=== PATIENT | female | born 1960 | race Caucasian/White ===

== ENCOUNTER 2017-03-09 10:42 | Emergency (ER) | payer MEDICAID ==
[~2017-03-09] VITALS: Ht 160 cm; Wt 68.0 kg
[2017-03-09 10:58] VITALS: BP 195/123
== END 2017-03-09 11:41 | disposition home or self-care (01) ==
LOC: ER 10:44
DX: M75.92 Shoulder lesion, unspecified, left shoulder (principal)
CPT/HCPCS: 73030; 93005

== ENCOUNTER 2020-07-01 06:59 | Emergency (ER) | payer MEDICAID ==
[~2020-07-01] VITALS: Ht 157.5 cm; Wt 72.1 kg
[2020-07-01 07:14] VITALS: BP 154/86
[2020-07-01] MEDS ORDERED: cefTRIAXone SOD 1,000 MG VL IM ONE (08:15)
== END 2020-07-01 08:44 | disposition home or self-care (01) ==
LOC: ER 06:59
DX: K04.7 Periapical abscess without sinus (principal); I10 Essential (primary) hypertension
CPT/HCPCS: 96372; 99283; J0696

== ENCOUNTER 2020-07-02 08:18 | Inpatient (IN) | payer MEDICAID ==
[~2020-07-02] VITALS: Ht 157.5 cm; Wt 69.1 kg
[2020-07-02] MEDS ORDERED: KETOROLAC TROMETH 30 MG/ML 1ML VIAL IV ONE (10:00)
[2020-07-02] MEDS ORDERED: cefTRIAXone 1GM/50ML D5W 50 ML IV ONE (10:00)
[2020-07-02] MEDS ORDERED: CLINDAMYCIN 600MG IV 50 ML IV ONE (10:00)
[2020-07-02 10:35] LABS: Basophils # (auto) 0 10 ^3/uL (0-0.2); Basophils % (auto) 0.1 % (0.0-2.0); Eosinophils # (auto) 0 10 ^3/uL (0-0.8); Eosinophils % (auto) 0.1 % (0.0-7.0); Hematocrit 37.8 % (36.0-46.0); Hemoglobin 12.6 g/dL (12.2-16.2); Lymphocytes # (auto) 0.7 10 ^3/uL (0.4-5.4); Lymphocytes % (auto) 5.9 % (10.0-50.0); Mean Corpuscular Hemoglobin 28.4 pg (28.0-32.0); Mean Corpuscular Hgb Conc. 33.5 g/dL (32.0-36.0); Mean Corpuscular Volume 84.8 fL (80.0-100.0); Monocytes % (auto) 8.3 % (0.0-12.0); Neutrophils # (auto) 10.3 10 ^3/uL (1.6-8.6); Neutrophils % (auto) 85.6 % (37.0-80.0); Nucleated Red Blood Cells % 0.2 %; Platelet Count (auto) 234 10^3/uL (140-450); Red Blood Cells 4.46 10^6/uL (4.0-5.20); Red Cell Distribution Width 13.4 % (11.8-14.3)
[2020-07-02] MEDS ORDERED: ONDANSETRON HCL 4 MG/2 ML VIAL IV PRN (12:00)
[2020-07-02 12:01] LABS: Chloride 104 mmol/L (98-107); Potassium 3.1 mmol/L (3.5-5.1); Sodium 138 mmol/L (136-145)
[2020-07-02 12:27] LABS: Anion Gap 12 (5-15); BUN/Creatinine Ratio 14.5; Blood Urea Nitrogen 12 mg/dL (7-18); Calcium 9.9 mg/dL (8.5-10.1); Carbon Dioxide 22 mmol/L (21-32); GFR African American 91 mL/min; GFR Non-African American 75 mL/min; Glucose 110 mg/dL (74-106)
--- NOTE | 2020-07-02 12:39 | NUR ---
MEDSURG admit from ER ANNIEJUAN DIEGO admitted to Telemetry unit after SBAR received. Patient oriented to LALO chan RN, unit, room 298A and unit policies regarding patient care and visiting hours. Patient weighed by bedscale and encouraged to call if they need something. All questions and concerns addressed, patient verbalized understanding.
[2020-07-02 13:00] VITALS: BP 137/65
[2020-07-02] MEDS: CLINDAMYCIN 600MG IV 50 ML IV SCH ×2 (13:43→20:31)
[2020-07-02] MEDS ORDERED: PIPERACILLIN-TAZOB 3.375GM 100 ML IV SCH ×2 (14:00)
--- NOTE | 2020-07-02 14:10 | NUR ---
PAGEPedro GANT Regarding patient potassium 3.1, awaiting call back.
--- NOTE | 2020-07-02 14:25 | NUR ---
STALIN RETURNED PAGE new orders for potassium 40 meq PO once, order read back and verified.
[2020-07-02] MEDS: MORPHINE SULF INJ 2 MG/ML SYRINGE 1ML IV PRN (14:42)
[2020-07-02] MEDS: PIPERACILLIN-TAZOB 3.375GM 100 ML IV SCH ×2 (14:59→20:31)
[2020-07-02] MEDS ORDERED: POTASSIUM CHL 20 Meq TABLET PO ONE (15:00)
[2020-07-02 17:33] VITALS: BP 132/78
[2020-07-02] MEDS: HYDROcodone-ACET 5/325MG TAB PO PRN (20:32)
[2020-07-02 22:00] VITALS: BP 129/72
[2020-07-03] MEDS: MORPHINE SULF INJ 2 MG/ML SYRINGE 1ML IV PRN ×4 (00:41→20:55)
[2020-07-03 05:00] VITALS: BP 139/73
[2020-07-03] MEDS: PIPERACILLIN-TAZOB 3.375GM 100 ML IV SCH ×3 (06:01→23:00)
[2020-07-03] MEDS: CLINDAMYCIN 600MG IV 50 ML IV SCH ×3 (06:02→21:33)
[2020-07-03 06:05] LABS: Basophils # (auto) 0 10 ^3/uL (0-0.2); Eosinophils # (auto) 0 10 ^3/uL (0-0.8); Eosinophils % (auto) 0.1 % (0.0-7.0); Hematocrit 34.1 % (36.0-46.0); Hemoglobin 11.7 g/dL (12.2-16.2); Lymphocytes # (auto) 0.8 10 ^3/uL (0.4-5.4); Lymphocytes % (auto) 6.3 % (10.0-50.0); Mean Corpuscular Hemoglobin 28.9 pg (28.0-32.0); Mean Corpuscular Hgb Conc. 34.3 g/dL (32.0-36.0); Mean Corpuscular Volume 84.1 fL (80.0-100.0); Monocytes # (auto) 0.9 10 ^3/uL (0-1.3); Neutrophils # (auto) 10.9 10 ^3/uL (1.6-8.6); Neutrophils % (auto) 86.6 % (37.0-80.0); Nucleated Red Blood Cells % 0.1 %; Platelet Count (auto) 214 10^3/uL (140-450); Red Blood Cells 4.05 10^6/uL (4.0-5.20); Red Cell Distribution Width 13.3 % (11.8-14.3); White Blood Cell 12.6 10^3/uL (4.4-10.8)
[2020-07-03 06:27] LABS: Calcium 8.7 mg/dL (8.5-10.1); Potassium 3.1 mmol/L (3.5-5.1)
[2020-07-03 06:29] LABS: Magnesium 2.3 mg/dL (1.6-2.6)
--- NOTE | 2020-07-03 06:47 | NUR ---
PT RESTING WITH EYES CLOSED; RESP EVEN AND UNLABORED;ABLE TO AMBULATE WITH GOOD STEADY GAIT WHEN AWAKE. PT IS PAIN FREE AT THIS TIME WITH CALL LIGHT IN REACH.
[2020-07-03 08:51] VITALS: BP 129/75
[2020-07-03 12:53] VITALS: BP 139/59
[2020-07-03 16:49] VITALS: BP 125/63
--- NOTE | 2020-07-03 19:50 | NUR ---
Opening Shift Note Assumed care of patient, awake and alert. No S/S of distress/SOB or pain. Instructed on POC and to call for assist PRN. Bed in lowest locked position, call light within reach, side rails up x2. Will continue to monitor for changes Q1hr and PRN.
[2020-07-03] MEDS ORDERED: ZOLPIDEM TARTRATE 5 MG TAB PO ONE (20:15)
[2020-07-03 22:00] VITALS: BP 132/68
[2020-07-04] MEDS: ACETAMINOPHEN 325 MG TAB PO PRN ×3 (00:35→23:04)
[2020-07-04 05:00] VITALS: BP 125/72
[2020-07-04] MEDS: CLINDAMYCIN 600MG IV 50 ML IV SCH (05:39)
[2020-07-04] MEDS: PIPERACILLIN-TAZOB 3.375GM 100 ML IV SCH (06:41)
--- NOTE | 2020-07-04 07:50 | NUR ---
Opening Shift Note Assumed care of patient, awake and alert. No S/S of distress/SOB or pain. Instructed on POC and to call for assist PRN, will continue to monitor for changes Q1hr and PRN. Fall precautions in place per safety protocol.
[2020-07-04] MEDS: MORPHINE SULF INJ 2 MG/ML SYRINGE 1ML IV PRN ×3 (08:42→20:19)
--- NOTE | 2020-07-04 08:47 | NUR ---
PAIN Patient requesting pain medications forpain rating 8/10 in jaw. medicated with morphine after vitals assessed. Will cont to monitor patient.
[2020-07-04 09:27] VITALS: BP 122/74
[2020-07-04 10:14] LABS: Hematocrit 35.8 % (36.0-46.0); Hemoglobin 11.9 g/dL (12.2-16.2); Mean Corpuscular Hgb Conc. 33.4 g/dL (32.0-36.0); Platelet Count (auto) 267 10^3/uL (140-450); Red Blood Cells 4.26 10^6/uL (4.0-5.20); Red Cell Distribution Width 13.4 % (11.8-14.3); White Blood Cell 12.7 10^3/uL (4.4-10.8)
[2020-07-04] MEDS ORDERED: IOHEXOL 300 MG/ML 100ML BOTTLE IJ ONE (10:14)
[2020-07-04 10:17] LABS: Band Neutrophils % (manual) 0; Basophils % (manual) 0 (0.0-2.0); Blast Cells 0; Eosinophils % (manual) 0 (0-7); Metamyelocytes % 0; Myelocytes % 0; Promyelocytes % 0; Reactive Lymphocytes 0
[2020-07-04 10:30] LABS: BUN/Creatinine Ratio 18.8; Calcium 8.7 mg/dL (8.5-10.1)
--- NOTE | 2020-07-04 10:30 | NUR ---
Critical Received critical lab for potassium. New orders received by MD Arevalo. Orders read back and verified, Will carry out new orders and cont to care for patient.
[2020-07-04 10:32] LABS: Potassium 2.8 mmol/L (3.5-5.1)
[2020-07-04] MEDS ORDERED: POTASSIUM CHL 20 Meq TABLET PO ONE (10:45)
[2020-07-04 10:51] LABS: Lymphocytes % (manual) 6 (10.0-50.0); Monocytes % (manual) 1 (0-12)
[2020-07-04] MEDS: POTASSIUM CHL 20MEQ/100ML 100 ML IV SCH ×2 (11:08→13:40)
--- NOTE | 2020-07-04 11:30 | NUR ---
Physician Per MD Arevalo, patient is to be transferred to higher level of care. Will consult case management for transfer.
[2020-07-04 14:26] VITALS: BP 137/98
--- NOTE | 2020-07-04 15:53 | NUR ---
Infectious Disease MD Polanco at bedside, aware of patient status. New orders received, will carry out new orders and cont to monitor patient.
[2020-07-04] MEDS ORDERED: VANCOMYCIN PER PHARMACY 0 MG IV SCH (16:00)
[2020-07-04 16:51] VITALS: BP 136/82
[2020-07-04] MEDS: AMPICILLIN & SULBACTAM SODIUM 3 GM in SODIUM CHL 0.9% 100 ML IV SCH ×2 (16:51→22:47)
--- NOTE | 2020-07-04 19:47 | NUR ---
1743 07/04/20 - Faxed to [facility] transfer center at [phone] and [facility] transfer center at [phone], face sheet, Order to transfer to higher level of care for oromaxillofacial surgery, H/P, labs, meds, ID consult. Contacted [facility] at [phone] placed patient on "will call". Contacted Enma WOLFF for [facility] who provided the following Authorizations for facility [id number] and transportation [id number]. Pending review and bed availability.
[2020-07-04] MEDS: VANCOMYCIN 1GM/250ML 250 ML IV SCH (20:16)
[2020-07-04 22:00] VITALS: BP 143/80
[2020-07-05] MEDS: TEMAZEPAM 15 MG CAP PO PRN ×2 (00:55→22:59)
[2020-07-05] MEDS: MORPHINE SULFATE 4 MG/ML SYR/VIAL IV PRN ×5 (01:05→22:20)
[2020-07-05] MEDS: AMPICILLIN & SULBACTAM SODIUM 3 GM in SODIUM CHL 0.9% 100 ML IV SCH ×5 (04:12→22:19)
[2020-07-05 05:00] VITALS: BP 137/73
[2020-07-05 07:14] LABS: Hematocrit 34.9 % (36.0-46.0); Hemoglobin 11.8 g/dL (12.2-16.2); Mean Corpuscular Hemoglobin 28.8 pg (28.0-32.0); Mean Corpuscular Hgb Conc. 33.7 g/dL (32.0-36.0); Mean Corpuscular Volume 85.5 fL (80.0-100.0); Platelet Count (auto) 265 10^3/uL (140-450); Red Blood Cells 4.09 10^6/uL (4.0-5.20); Red Cell Distribution Width 13.3 % (11.8-14.3); White Blood Cell 10.8 10^3/uL (4.4-10.8)
[2020-07-05 07:39] LABS: Band Neutrophils % (manual) 0; Basophils % (manual) 0 (0.0-2.0); Blast Cells 0; Eosinophils % (manual) 0 (0-7); Metamyelocytes % 0; Promyelocytes % 0; Reactive Lymphocytes 0
[2020-07-05 08:00] VITALS: BP 136/80
[2020-07-05 08:22] LABS: Lymphocytes % (manual) 13 (10.0-50.0); Monocytes % (manual) 7 (0-12); Myelocytes % 2
[2020-07-05] MEDS: VANCOMYCIN 1GM/250ML 250 ML IV SCH ×2 (08:29→20:21)
[2020-07-05 09:49] VITALS: BP 136/80
--- NOTE | 2020-07-05 14:05 | NUR ---
Dr Arevalo on unit
[2020-07-05 14:35] VITALS: BP 130/80
[2020-07-05 16:49] VITALS: BP 139/83
--- NOTE | 2020-07-05 19:30 | NUR ---
Opening Shift Note Assumed care of patient, awake and alert. No S/S of distress/SOB or pain. Instructed on POC and to call for assist PRN, will continue to monitor for changes Q1hr and PRN.
[2020-07-05 22:00] VITALS: BP 137/74
[2020-07-06] MEDS: AMPICILLIN & SULBACTAM SODIUM 3 GM in SODIUM CHL 0.9% 100 ML IV SCH ×4 (04:25→21:27)
[2020-07-06 05:00] VITALS: BP 131/84
[2020-07-06] MEDS: MORPHINE SULFATE 4 MG/ML SYR/VIAL IV PRN ×4 (05:31→20:41)
--- NOTE | 2020-07-06 08:20 | NUR ---
Opening note Assumed care of patient from NOC RN. Patient is Aox4 on room air no s/s of distress noted. Bed is in lowest locked position, call light within reach and side rails up x2. Updated patient on plan of care and patient verbalized understanding. Will continue to monitor.
[2020-07-06 09:00] VITALS: BP 136/76
--- NOTE | 2020-07-06 10:35 | NUR ---
1020 07/06/20- Contacted by [facility] transfer center death clearance coordinator Marina who stated patient has been accepted for care by Dr Ching, pending bed assignment and completion of Transfer back Agreement. Marina also requesting PCR COVID test to be done.
[2020-07-06] MEDS: VANCOMYCIN 1GM/250ML 250 ML IV SCH ×2 (11:07→23:23)
[2020-07-06 13:00] VITALS: BP 126/78
[2020-07-06] MEDS: HYDROcodone-ACET 5/325MG TAB PO PRN (14:02)
--- NOTE | 2020-07-06 16:50 | NUR ---
Received call from Received call from Dr. Arevalo, updated MD that patient is still pending bed and room assignment for [facility]. Per MD if patient does not go tonight, MD is to be contacted for tomorrow.
[2020-07-06 17:00] VITALS: BP 131/78
--- NOTE | 2020-07-06 17:07 | NUR ---
called piano case maker Spoke with Cat piano case maker. Per Cat, copy of COVID PCR result and COVID PCR result was faxed to [facility]. Per Cat bed assignment is still pending. Cat will call facility to find out what is pending for transfer.
--- NOTE | 2020-07-06 17:12 | NUR ---
call from case management Received call from iNkki. Nikki spoke with [facility] and per facility placement update will be within 30 min. Per nikki they will call [facility] to provide this RN with an update.
--- NOTE | 2020-07-06 17:13 | NUR ---
3935 - Contacted [facility] transfer center at [phone] to f/u on bed assignment, spoke with Marina who confirmed receiving completed return agreement, and COVID results. Per Marina they will get an update on available beds in 30 mins. I asked her to please call nurse's unit at [phone] ext [phone] with updated bed status. Informed nurse CC of above info.
--- NOTE | 2020-07-06 17:45 | NUR ---
1730 07/06/20 - Contacted [facility] at [phone] to update "will call" status authorization number [id number].
--- NOTE | 2020-07-06 19:25 | NUR ---
END OF SHIFT NOTE CARE ENDORSED TO NOC RN. NO S/S OF DISTRESS NOTED.
--- NOTE | 2020-07-06 19:25 | NUR ---
Opening Shift Note Received report from joya Mooney RN. Assumed care of patient, awake and alert. No S/S of distress/SOB or pain. Instructed on POC and to call for assist PRN, will continue to monitor for changes Q1hr and PRN. Bed placed in lowest position and call light within reach.
[2020-07-06 20:00] VITALS: BP 137/87
[2020-07-06] MEDS: TEMAZEPAM 15 MG CAP PO PRN (21:26)
[2020-07-06 22:00] VITALS: BP 137/87
[2020-07-07] MEDS: AMPICILLIN & SULBACTAM SODIUM 3 GM in SODIUM CHL 0.9% 100 ML IV SCH ×3 (03:41→16:20)
[2020-07-07] MEDS: MORPHINE SULFATE 4 MG/ML SYR/VIAL IV PRN ×3 (04:17→13:16)
[2020-07-07 05:00] VITALS: BP 127/66
--- NOTE | 2020-07-07 07:50 | NUR ---
OPENING SHIFT NOTE: PATIENT AWAKE IN BED, EATING BREAKFAST ASKING FOR PAIN MEDICATION. WILL GIVE ORDERED. PATIENT A/OX4, AWARE OF TRANSFER, DR. ROBLES IN TO SEE THE PATIENT ALSO INQUIRING WHEN IT WILL BE DONE. UPDATED MUCH POSSIBLE. CALL LIGHT WITHIN REACH, WILL CONTINUE TO MONITOR.
[2020-07-07 09:00] VITALS: BP 132/73
--- NOTE | 2020-07-07 09:13 | NUR ---
I called [facility] Transfer [facility] and spoke with Josefina, she said they have all the information they need-they are just waiting for a bed assignment.
[2020-07-07] MEDS: VANCOMYCIN 1GM/250ML 250 ML IV SCH (11:23)
[2020-07-07 13:00] VITALS: BP 116/84
--- NOTE | 2020-07-07 14:46 | NUR ---
Patient will be going to [facility] [address] Room 1 bed 2-nurse to call report to [phone]-accepting MD is Dr. Harrison Ching. I called [facility] and spoke with Alphonso poultry picker time set for 1630-I relayed this information to patient's primary nurse. I called Josefina at [facility] Transfer and made her aware of the ETA for [facility].
--- NOTE | 2020-07-07 15:21 | NUR ---
MD GANT NOTIFIED OF BED ACCEPTANCE AT [facility].
--- NOTE | 2020-07-07 15:50 | NUR ---
REPORT GIVEN TO LYDIA WELLER RN AT [address].
[2020-07-07] MEDS: HYDROcodone-ACET 5/325MG TAB PO PRN (16:20)
[2020-07-07 16:50] VITALS: BP 146/82
--- NOTE | 2020-07-07 19:04 | NUR ---
CARE ENDORSED TO CHERRIE LOPEZ. PATIENT READY TO GO WHEN TRANSPORT ARRIVES, PER [facility] BETWEEN [phone].
--- NOTE | 2020-07-07 19:33 | NUR ---
DISCHARGE: PATIENT DISCHARGED. ALL PATIENT MATERIALS GIVEN TO [facility], AND PATIENT LEFT WITH ALL BELONGINGS. IV INTACT ON DC. NO S/S OF DISTRESS.
== END 2020-07-07 18:33 | disposition short-term general hospital (02) | DRG 383 ==
LOC: ER 08:18 → OVERFLOW 08:19 → WEST WING 12:40
PROVIDERS: ADMIT Internal Medicine; ATTEND Internal Medicine
DX: L02.01 Cutaneous abscess of face (principal); L03.211 Cellulitis of face; K11.21 Acute sialoadenitis; M27.2 Inflammatory conditions of jaws; K04.7 Periapical abscess without sinus; D72.829 Elevated white blood cell count, unspecified; E87.6 Hypokalemia; K02.9 Dental caries, unspecified; F17.210 Nicotine dependence, cigarettes, uncomplicated; I10 Essential (primary) hypertension; Z90.710 Acquired absence of both cervix and uterus; Z20.828 Contact with and (suspected) exposure to other viral communicable diseases
CPT/HCPCS: 36415; 70486; 70487; 80048; 80202; 82565; 83605; 83735; 85007; 85025; 85027; 87040; 87426; 96365; 96368; 96375; G0378; J0696; J1885; J2543; J3480; J3490